=== PATIENT | female | born 1985 | race Caucasian/White ===

== ENCOUNTER 2018-12-06 20:31 | Emergency (ER) | payer OTHER, MEDICAID ==
[~2018-12-06] VITALS: Ht 172.7 cm; Wt 67.6 kg
[2018-12-06] MEDS ORDERED: BIRTH CONTROL (20:53)
[2018-12-06] MEDS ORDERED: CELEXA 20 MG TA20 MG PO (20:53)
[2018-12-06 22:51] LABS: URINE BILIRUBIN NEGATIVE (Negative); URINE BLOOD 3+ (Negative); URINE CLARITY CLEAR; URINE COLOR YELLOW; URINE GLUCOSE-RANDOM TRACE (Negative); URINE KETONES NEGATIVE (Negative); URINE LEUKOCYTES-REFLEX NEGATIVE (Negative); URINE PROTEIN 2+ (Negative); URINE SPECIFIC GRAVITY >= 1.030 (1.005-1.030)
[2018-12-06 22:52] LABS: ABSOLUTE LYMPHOCYTES 0.3 thou/uL (0.8-5.3); ABSOLUTE MONOCYTES 0.3 thou/uL (0.0-1.2); ABSOLUTE NEUTROPHILS 2.5 thou/uL (1.6-8.1); BASOPHILS 1.2 %; HEMATOCRIT 27.7 % (37.0-47.0); HEMOGLOBIN 8.7 gm/dL (12.0-15.0); LYMPHOCYTES 10.1 %; MCH 24.6 pg (26.0-34.0); MCHC 31.5 g/dL (28.0-37.0); MONOCYTES 10.5 %; MPV 8.3 fl. (7.2-11.1); NUCLEATED RBCS 0 /100WBC; PLATELET COUNT* 144 thou/uL (150-400); POLYS 77.2 %; RBC 3.55 mil/uL (4.20-5.00); RDW-CV 22.2 % (10.5-14.5); WBC 3.3 thou/uL (4.0-11.0)
[2018-12-06 22:55] LABS: URINE NITRITE-REFLEX POSITIVE (Negative)
[2018-12-06 22:57] LABS: BACTERIA-REFLEX >30 Many /HPF (None Seen); CASTS None Seen /LPF (None Seen); CRYSTALS None Seen /LPF (None Seen); SQUAMOUS 0-3 Few /LPF (0-3); URINE RBC >20 Many /HPF (0-2); URINE WBC-REFLEX >25 Many /HPF (0-5)
[2018-12-06 23:00] LABS: CALCIUM 8.5 mg/dL (8.5-10.1); CREATININE 0.9 mg/dL (0.6-1.3); POTASSIUM 3.9 mmol/L (3.5-5.1)
[2018-12-06 23:05] LABS: ALBUMIN 3.1 g/dL (3.4-5.0); TOTAL PROTEIN 5.4 g/dL (6.4-8.2)
[2018-12-06 23:36] LABS: ANISOCYTOSIS 1+; HYPOCHROMASIA 1+; PLATELET ESTIMATE ADEQUATE
[2018-12-07] MEDS ORDERED: ZOFRAN ODT4 MG PO (00:49)
[2018-12-07] MEDS ORDERED: BACTRIM DS TAB1 EACH PO (01:10)
[2018-12-07 01:21] VITALS: BP 129/86
== END 2018-12-07 01:25 | disposition home or self-care (01) ==
LOC: M.ERS 20:31
PROVIDERS: Personal Emergency Response Attendant
DX: R11.0 Nausea (principal); R42 Dizziness and giddiness; E86.0 Dehydration; Z88.1 Allergy status to other antibiotic agents; Z88.0 Allergy status to penicillin